=== PATIENT | male | born 1945 | race Caucasian/White ===

== ENCOUNTER 2018-01-30 12:12 | Emergency (ER) | payer BC, OTHER ==
[~2018-01-30] VITALS: Ht 170.2 cm; Wt 104.3 kg
[2018-01-30] MEDS ORDERED: TAMS0.4C PO (12:33)
== END 2018-01-30 17:19 | disposition home or self-care (01) ==
LOC: ER 12:12
DX: L13.0 Dermatitis herpetiformis (principal)